=== PATIENT | male | born 1955 | race Caucasian/White ===

== ENCOUNTER 2020-11-19 09:28 | Outpatient (CLI) | payer OTHER, SELFPAY ==
--- NOTE | 2020-11-19 11:30 | NEURO_ITS ---
Impression: # Complains of paresthesia of lower extremities. # Normal motor and sensory nerve conduction study. # No evidence of Tarsal Tunnel Syndrome. # Normal needle/EMG exam. # Clinical correlation recommended. Nerve Conduction Studies Anti Sensory Summary Table Stim Site NR Peak (ms) P-T Amp (?V) Site1 Site2 Delta-P (ms) Dist (cm) Ramón (m/s) Left Sup Fibular Anti Sensory (Ant Lat Mall) 14 cm 3.4 9.0 14 cm Ant Lat Mall 3.4 16.0 47 Right Sup Fibular Anti Sensory (Ant Lat Mall) 14 cm 3.3 10.7 14 cm Ant Lat Mall 3.3 16.0 48 Left Sural Anti Sensory (Lat Mall) Calf 4.0 10.4 Calf Lat Mall 4.0 16.0 40 Right Sural Anti Sensory (Lat Mall) Calf 3.6 12.7 Calf Lat Mall 3.6 16.0 44 Motor Summary Table Stim Site NR Onset (ms) O-P Amp (mV) Site1 Site2 Delta-0 (ms) Dist (cm) Ramón (m/s) Left Lateral Plantar Motor (ADM) Med Mall 5.3 1.3 Right Lateral Plantar Motor (ADM) Med Mall 5.3 0.8 Left Peroneal Motor (Vastus Med) Ankle 4.5 2.6 Popit Ankle 7.8 37.0 47 Popit 12.3 1.8 Right Peroneal Motor (Vastus Med) Ankle 4.0 1.6 Popit Ankle 7.7 36.0 47 Popit 11.7 1.3 Left Tibial Motor (Abd Marcus Brev) Ankle 4.8 1.5 Knee Ankle 8.6 41.0 48 Knee 13.4 0.7 Right Tibial Motor (Abd Marcus Brev) Ankle 4.4 3.7 Knee Ankle 8.8 40.0 45 Knee 13.2 0.8 F Wave Studies NR F-Lat (ms) L-R F-Lat (ms) Left Peroneal (Mrkrs) (EDB) 53.32 0.58 Right Peroneal (Mrkrs) (EDB) 53.91 0.58 Left Tibial (Mrkrs) (Abd Hallucis) 55.00 0.73 Right Tibial (Mrkrs) (Abd Hallucis) 54.28 0.73 EMG Side Muscle Nerve Root Ins Act Fibs Amp Dur Recrt Comment Right AntTibialis Dp Br Fibular L4-5 Nml Nml Nml Nml Nml Right Gastroc Tibial S1-2 Nml Nml Nml Nml Nml Right Fibularis Long Sup Br Fibular L5-S1 Nml Nml Nml Nml Nml Right Flex Dig Long Tibial L5-S2 Nml Nml Nml Nml Nml Right Ext Dig Brev Dp Br Fibular L5, S1 Nml Nml Nml Nml Nml Left AntTibialis Dp Br Fibular L4-5 Nml Nml Nml Nml Nml Left Gastroc Tibial S1-2 Nml Nml Nml Nml Nml Left Fibularis Long Sup Br Fibular L5-S1 Nml Nml Nml Nml Nml Left Flex Dig Long Tibial L5-S2 Nml Nml Nml Nml Nml Left Ext Dig Brev Dp Br Fibular L5, S1 Nml Nml Nml Nml Nml Right QuadratusFem QuadFemoris L4-5, S1 Nml Nml Nml Nml Nml Left QuadratusFem QuadFemoris L4-5, S1 Nml Nml Nml Nml Nml MTDD
== END 2020-11-19 09:29 | disposition home or self-care (01) ==
LOC: ANHNEURO 09:31
PROVIDERS: PCP Internal Medicine; Visit Provider Internal Medicine
DX: R20.2 Paresthesia of skin (principal)
CPT/HCPCS: 95886; 95911

== ENCOUNTER 2022-03-18 06:41 | Outpatient (CLI) | payer MEDICARE, SELFPAY ==
--- NOTE | ~2022-03-18 | MR_ITS ---
EXAMINATION: MR cervical spine wo con DATE: 03/18/2022 07:24 INDICATION: Neck pain. TECHNIQUE: Magnetic resonance imaging (MRI) of the cervical spine was performed without intravenous c ontrast. Sequences included sagittal T2-weighted FSE, sagittal T2-weighted FS FSE, sagittal T1-weight ed FSE, axial MERGE, and axial T2-weighted FSE. COMPARISON: None FINDINGS: There is 5 degrees dextrocurvature of cervicothoracic spine. There is kyphosis of cervical spine. There is 2 mm retrolisthesis of C5 on C6 and 2 mm anterolisthesis of C7 on T1. There is mild c hronic anterior wedging of T1 vertebral body. There is moderately decreased disc height at C4-C5, C5- C6, and C6-C7. The spinal cord signal intensity is normal. The following disc levels are specifically discussed: C2-C3: The disc does not extend beyond the endplate margin. There is moderate right uncovertebral walt nt osteoarthritis. There is severe right and mild left facet joint osteoarthritis. There is moderate right neural foraminal stenosis. There is no central canal stenosis. C3-C4: The disc is bulging. There is severe bilateral uncovertebral joint osteoarthritis. There is mo derate right and severe left facet joint osteoarthritis. There is mild right and moderate left neural foraminal stenosis. There is mild central canal stenosis. C4-C5: The disc is bulging. There is severe bilateral uncovertebral joint osteoarthritis. There is mi ld bilateral facet joint osteoarthritis. There is moderate bilateral neural foraminal stenosis. There is mild central canal stenosis. C5-C6: The disc is bulging. There is severe bilateral uncovertebral joint osteoarthritis. There is mi ld bilateral facet joint osteoarthritis. There is moderate bilateral neural foraminal stenosis. There is mild central canal stenosis. C6-C7: The disc is bulging. There is severe bilateral uncovertebral joint osteoarthritis. There is no facet joint osteoarthritis. There is moderate bilateral neural foraminal stenosis. There is mild liz tral canal stenosis. C7-T1: The disc does not extend beyond the endplate margin. There is no uncovertebral joint osteoarth ritis. There is moderate right and severe left facet joint osteoarthritis. There is mild left neural foraminal stenosis. There is no central canal stenosis. IMPRESSION: 1. Severe cervical spondylosis. Reviewed, dictated and finalized at location A.
== END 2022-03-18 06:42 | disposition home or self-care (01) ==
PROVIDERS: PCP Family Medicine; Visit Provider Orthopaedic Surgery
DX: M47.22 Other spondylosis with radiculopathy, cervical region (principal)
CPT/HCPCS: 72141

== ENCOUNTER 2022-06-27 10:30 | Outpatient (RCR) | payer MEDICARE, SELFPAY ==
--- NOTE | 2022-05-11 11:53 | BUPTOPEVAL1 ---
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 Pt has had MRI imaging showing severe spondylosis of multiple levels. Pt demo's in addition to reduced cervical spine motion, foundational kinematic alignment issues with scoliosis and possible leg length discrepancy with RLE short ~1/2inch. Pt LUE strength testing WNL and LUE ROM WNL. Pt reports LUE greatly improved since initial injury. Thus pt POC will focus most on cervical issues at this time. Pt will greatly benefit from physical therapy in order to improve ROM, alignment, muscle tone and pain to improve overall functional ability and reduce progression of main and deficits. Plan of Care Interventions Electrical Stimulation,Hot Pack/Cold Pack,Manual Therapy,Neuro Re-education,Therapeutic Activities, Therapeutic Exercise,Ultrasound PT Services Indicated Yes Treatment Frequency and 1-2x weekly x 12 visits Duration These treatments will address the objective and functional deficits as defined above. The patient will be advanced safely and appropriately in order for the patient to progress towards his/her prior level of function. Additional exercises will be introduced and as well as a comprehensive home exercise program upon discharge, if needed, ?to ensure carryover of functional gains achieved in the clinic. This treatment plan has been reviewed and agreement upon by the patient.
--- NOTE | 2022-06-27 16:21 | PTOPDC ---
Assessment and note entered by Becki Lay, PT Assessment Status Discharge Diagnosis cervical radiculopathy LUE Onset 11/2021 Subjective Information Pt reports left arm pain is resolved. Reports neck is 90-95% improved Reported Pain Level Pain Score 0: Self Report Assessment PT Clinical Summary Pt reports feeling 90-95% improved overall since starting therapy. States left arm is no longer bothersome, is better able to sleep at night. Only has stiffness in the morning with his neck, resolves as he gets active in the daytime. Reports highest pain level is first in the morning at a 2 /10 and lowest at 0/10. Pt demonstrates and understands his home program as well as how to access therapy in the future if is necessary. Pt is happy with his progress. Thus he is being discharged from therapy plan of care at this time.
== END 2022-06-28 13:06 | disposition home or self-care (01) ==
LOC: ANHHIPT 10:30
PROVIDERS: PCP Family Medicine; Visit Provider Family Medicine
DX: M54.12 Radiculopathy, cervical region (principal); S46.212D Strain of muscle, fascia and tendon of other parts of biceps, left arm, subsequent encounter
CPT/HCPCS: 97014; 97110; 97140; 97162; G0283

== ENCOUNTER 2022-09-09 09:15 | Outpatient (RCR) | payer MEDICARE, SELFPAY ==
--- NOTE | 2022-08-16 09:24 | PTOPEVAL1 ---
Assessment and note entered by Yoly Castañeda DPT Evaluation Information Assessment Status Evaluation Subjective Information Pt reports pain for several weeks that is mainly in his neck, more right sided. Has trouble laying down to sleep and has been trying to sleep in a recliner. Pain radiates up to ear and down to shoulder. Denies radiation past his right shoulder . Highest pain 10/10 recently and lowest 1/10. Sometimes feels tingling but is mostly pain. Pain also increases with looking overhead or turning head side to side like while driving. Some pain after yard work. Pt is retired. Has tried ice and heat which help somewhat, more heat than ice. Previously had been having less pain and less difficulty with activities like driving. Reported Pain Level Pain Score 4: Self Report Assessment PT Clinical Summary The patient is presenting to skilled therapy with a several week history of right cervical pain. He presents with significantly decreased cervical range of motion in all planes, decreased upper extremity strength, and flexibility impairments which are contributing to his pain and difficulty with activities like sleeping and turning his head to drive. He will benefit from therapy to address these impairments and reduce pain and dysfunction . Plan of Care Interventions Electrical Stimulation,Hot Pack/Cold Pack,Manual Therapy,Mechanical Traction,Neuro Re-education, Patient/Caregiver Education,Therapeutic Activities, Therapeutic Exercise,Self-Care/Home Management PT Services Indicated Yes Treatment Frequency and 2 times a week for 4 weeks Duration These treatments will address the objective and functional deficits as defined above. The patient will be advanced safely and appropriately in order for the patient to progress towards his/her prior level of function. Additional exercises will be introduced and as well as a comprehensive home exercise program upon discharge, if needed, ?to ensure carryover of functional gains achieved in the clinic. This treatment plan has been reviewed and agreement upon by the patient.
--- NOTE | 2022-10-24 10:01 | PTOPDC ---
Assessment and note entered by Becki Lay, PT Assessment Status Discharge - Pt Not Present Subjective Information Pt reports pain for several weeks that is mainly (evaluation) in his neck, more right sided. Has trouble laying down to sleep and has been trying to sleep in a recliner. Pain radiates up to ear and down to shoulder. Denies radiation past his right shoulder . Highest pain 10/10 recently and lowest 1/10. Sometimes feels tingling but is mostly pain. Pain also increases with looking overhead or turning head side to side like while driving. Some pain after yard work. Pt is retired. Has tried ice and heat which help somewhat, more heat than ice. Previously had been having less pain and less difficulty with activities like driving. Assessment PT Clinical Summary Pt cancelled his last two appointments stating he would be having surgery and didn't know when he would be able to return to therapy. It has been over 30 days since we have heard from the patient thus we are discharging him from the current plan of care. We would be happy to resume therapy with an updated prescription.
== END 2022-10-24 12:40 | disposition home or self-care (01) ==
LOC: ANHHIPT 09:15
PROVIDERS: PCP Family Medicine; Visit Provider Physician Assistant Medical
DX: M25.512 Pain in left shoulder (principal); M54.2 Cervicalgia
CPT/HCPCS: 97012; 97014; 97110; 97112; 97140; 97162; G0283

== ENCOUNTER 2023-11-02 04:52 | Day surgery (SDC) | payer MEDICARE, SELFPAY ==
[2023-10-23 11:00] VITALS: BMI 32.5
[2023-10-23 11:19] VITALS: BMI 32.5
[2023-11-02 13:59] VITALS: BP 152/74; PULSE 93; RESP 19; TEMP 36.2; O2SAT 99
[2023-11-02] MEDS: LACTATED RINGERS 1,000 ML 150 ML IV CONT (14:08)
--- NOTE | 2023-11-02 14:49 | WPDANESEPPF ---
Anes - Initial Pre Proc Eval Procedure: Operation Date: 11/02/23 15:00 Proposed Procedures p Colonoscopy - Aakash Knox MD Date/Time: 11/02/23 14:49 Surgeon: Aakash Knox MD Pre Op Diagnosis: other fecal abnormalities Patient Data Age: 67 Gender: M Height: 1.75 m Weight: 100 kg Last Vital Signs Temp 36.2 C L 11/02/23 13:59 Pulse 93 11/02/23 13:59 Resp 19 11/02/23 13:59 BP 152/74 H 11/02/23 13:59 Pulse Ox 99 11/02/23 13:59 O2 Del Method Room Air 11/02/23 13:59 Allergies Allergy/AdvReac Type Severity Reaction Status Date / Time No Known Allergies Allergy Mild Verified 11/02/23 13:58 Home Medications Medication Instructions Recorded Confirmed Type budesonide-formoterol HFA 160 2 puff inhalation Q12H #30.6 grams 02/15/23 10/23/23 Rx mcg-4.5 mcg/actuation aerosol inhaler (Symbicort) sildenafil 100 mg tablet (Viagra) 100 mg PO DAILY PRN sexual 02/15/23 10/23/23 Rx activity #30 tabs lorazepam 0.5 mg tablet 0.5 mg PO BID PRN anxiety #60 tabs 07/20/23 11/02/23 Rx atorvastatin 20 mg tablet See Rx Instructions .Route 09/29/23 10/23/23 Rx .COMPLEX #90 tabs amlodipine 5 mg tablet See Rx Instructions .Route 10/23/23 11/02/23 Rx .COMPLEX #90 tabs lisinopril 20 See Rx Instructions .Route 10/30/23 11/02/23 Rx mg-hydrochlorothiazide 12.5 mg .COMPLEX #180 tabs tablet Patient hx anesthesia problems: none Family hx anesthesia problems: none Results Review: All pre-operative results and documents have been reviewed as part of the pre-operative evaluation. [facility] Past Medical History Medical History Anxiety Arthritis Biceps strain Cervical radiculopathy at C6 COPD (chronic obstructive pulmonary disease) Erectile dysfunction Hyperlipidemia Hypertension Otitis externa Otitis media Tendinitis of left rotator cuff Surgical History Surgical History H/O hernia repair H/O rhinoplasty H/O vascular surgery Angioplasty Hx of cataract surgery Family History Family History Father Hypertension Mother Hypertension Depression Cancer Other Arthritis HLD (hyperlipidemia) Social History Social History Smoking packs per day: 1.5 Smoking cigarettes per day: 30.0 Years smoked: 35 Smoking pack-years: 52.50 Smoking status: Former smoker Tobacco type: cigarettes Second hand tobacco smoke exposure: Yes Smoking end date: 05/22/16 Alcohol intake: current Drinks per week: 12 Alcohol use details: BEER Substance use: never Substance use type: does not use Lack of Transportation: No Lack of Food: Never True Current Housing: I Have Housing Concerned About Future Housing: No Difficulty Paying Gas/Electric Bills: No Difficulty Paying for Meds: No Currently Unemployed: No Education: High School Diploma/GED Difficulty w/ Childcare or Family Care: No Living arrangements: alone Occupation/Education: retired Gender identity (if verbalized by the patient): Male Sexual Orientation (if Verbalized by the Patient): Straight or Heterosexual Spiritual care concerns: No Anes - Eval Final PreProcedure Day of Procedure 11/02/23 14:49 Patient weight: obese Heart: regular rate and rhythm Lungs: clear to auscultation Airway: Mallampati scale class II and special considerations poor dentition Neurological: alert and oriented Last oral intake: >/= 8 hours ASA classification: III Emergent: no Anesthetic plan: proceed Anesthesia type and monitoring: general GIVS and standard monitoring Results Review: All pre-operative results and documents have been reviewed as part of the pre-operative evaluation. Informed Consent: The patient's anesthetic plan and its attendant risks and praveena
--- NOTE | 2023-11-02 15:42 | PM.HPGS ---
History of Present Illness History of Present Illness Consent: Risks, benefits, and alternatives have been discussed and questions answered. Patient agrees to proceed with procedure. Chief complaint: other fecal abnormalities Narrative: Juan M Patel is a 67 year old male with + cologuard, last colonoscopy 8 years ago Review of Systems Review of Systems: All systems reviewed & are unremarkable except as noted in HPI and below PMFSH Past Medical History Medical History (Updated 11/02/23 @ 15:46 by Aakash Knox MD) Anxiety Arthritis Biceps strain Cervical radiculopathy at C6 COPD (chronic obstructive pulmonary disease) Erectile dysfunction Hyperlipidemia Hypertension Otitis externa Otitis media Positive colorectal cancer screening using Cologuard test Tendinitis of left rotator cuff Surgical History Surgical History H/O hernia repair H/O rhinoplasty H/O vascular surgery Angioplasty Hx of cataract surgery Family History Family History Father Hypertension Mother Hypertension Depression Cancer Other Arthritis HLD (hyperlipidemia) Social History Social History Smoking packs per day: 1.5 Smoking cigarettes per day: 30.0 Years smoked: 35 Smoking pack-years: 52.50 Smoking status: Former smoker Tobacco type: cigarettes Second hand tobacco smoke exposure: Yes Smoking end date: 05/22/16 Alcohol intake: current Drinks per week: 12 Alcohol use details: BEER Substance use: never Substance use type: does not use Lack of Transportation: No Lack of Food: Never True Current Housing: I Have Housing Concerned About Future Housing: No Difficulty Paying Gas/Electric Bills: No Difficulty Paying for Meds: No Currently Unemployed: No Education: High School Diploma/GED Difficulty w/ Childcare or Family Care: No Living arrangements: alone Occupation/Education: retired Gender identity (if verbalized by the patient): Male Sexual Orientation (if Verbalized by the Patient): Straight or Heterosexual Spiritual care concerns: No Meds Home Medications and Allergies Home Medications Medication Instructions Recorded Confirmed Type budesonide-formoterol HFA 160 2 puff inhalation Q12H #30.6 grams 02/15/23 10/23/23 Rx mcg-4.5 mcg/actuation aerosol inhaler (Symbicort) sildenafil 100 mg tablet (Viagra) 100 mg PO DAILY PRN sexual 02/15/23 10/23/23 Rx activity #30 tabs lorazepam 0.5 mg tablet 0.5 mg PO BID PRN anxiety #60 tabs 07/20/23 11/02/23 Rx atorvastatin 20 mg tablet See Rx Instructions .Route 09/29/23 10/23/23 Rx .COMPLEX #90 tabs amlodipine 5 mg tablet See Rx Instructions .Route 10/23/23 11/02/23 Rx .COMPLEX #90 tabs lisinopril 20 See Rx Instructions .Route 10/30/23 11/02/23 Rx mg-hydrochlorothiazide 12.5 mg .COMPLEX #180 tabs tablet Allergies Allergy/AdvReac Type Severity Reaction Status Date / Time No Known Allergies Allergy Mild Verified 11/02/23 13:58 Vital Signs Vital Signs - 24 hr 11/02/23 13:59 Temperature 97.2 F L Pulse Rate 93 Respiratory Rate 19 Blood Pressure 152/74 H Pulse Oximetry 99 Oxygen Delivery Room Air Exam Const: General: comfortable and no acute distress HENMT: Face/Nose/Sinus: Normal nares present Eyes: General: appearance normal, both eyes and all related structures Neck: Neck: no JVD Resp: Auscultation: clear to auscultation bilaterally Cardio: Rate: regular rate Rhythm: regular rhythm GI: Inspection: non-distended GI Palp: Yes Soft to palpation Skin: General skin exam: normal color Neuro: General: gait normal Speech: normal speech Extrem: General: normal to inspection Psych: Mental Status: mental status grossly normal Assessment and Plan Assessment and plan (1) Positive colorectal can
[2023-11-02 16:08] VITALS: BP 96/46; PULSE 85; RESP 20; O2SAT 97
[2023-11-02 16:18] VITALS: BP 117/68; PULSE 85; RESP 17; O2SAT 100
[2023-11-02 16:28] VITALS: BP 134/72; PULSE 79; RESP 19; O2SAT 100
== END 2023-11-02 16:36 | disposition home or self-care (01) ==
PROVIDERS: PCP Family Medicine; Referring Provider Physician Assistant Medical; Visit Provider Internal Medicine Gastroenterology
PROC: 0DJD8ZZ Inspection of Lower Intestinal Tract, Via Natural or Artificial Opening Endoscopic (ICD-10-PCS; CPT 45378; principal; 2023-11-02 15:00)
DX: D12.2 Benign neoplasm of ascending colon (principal); K57.30 Diverticulosis of large intestine without perforation or abscess without bleeding; K64.8 Other hemorrhoids; J44.9 Chronic obstructive pulmonary disease, unspecified; I10 Essential (primary) hypertension; E78.5 Hyperlipidemia, unspecified; F41.9 Anxiety disorder, unspecified; Z79.51 Long term (current) use of inhaled steroids; Z87.891 Personal history of nicotine dependence; E66.9 Obesity, unspecified; Z68.32 Body mass index [BMI] 32.0-32.9, adult
CPT/HCPCS: 45385; 88305; J2001; J2704; J7120

== ENCOUNTER 2024-02-09 07:28 | Outpatient (CLI) | payer MEDICARE, SELFPAY ==
--- NOTE | ~2024-02-09 | MR_ITS ---
EXAMINATION: MR renal wo/w con DATE: 02/09/2024 08:46 INDICATION: Other specified disorders of kidney and ureter. TECHNIQUE: Magnetic resonance imaging (MRI) of the abdomen was performed without and with 20 mL Multi hiren intravenous contrast. Sequences included coronal T2-weighted SS-FSE, coronal and axial FS 2D-F IESTA, axial STIR FSE, axial T2-weighted SS-FSE, axial T2-weighted FS SS-FSE, axial diffusion-weighte d SE, axial dual-echo T1-weighted FSPGR, and axial and coronal T1-weighted LAVA. Postcontrast axial T 1-weighted LAVA images were obtained in a time course. Postcontrast coronal T1-weighted LAVA images w ere obtained. COMPARISON: None. FINDINGS: Heart size is normal. No pericardial or pleural effusion. Liver, gallbladder, spleen, pancreas, left kidney and bilateral adrenal glands are normal. 1.5 similar exophytic proteinaceous/hemorrhagic cyst at the lower pole of the left kidney which demonstrates high T1 and very low T2 signal without eviden t enhancement on postcontrast imaging. Bowels are unremarkable with normal retrocecal appendix. No pa thologically enlarged abdominal or upper pelvic lymphadenopathy. Mild lumbar dextrocurvature with mod erate to severe spondylosis. Small T1 hyperintense fat saturating hemangioma at T12. No pathologic ma rrow replacing process. IMPRESSION: 1. 1.5 cm nonenhancing proteinaceous/hemorrhagic cyst at the lower pole of the right kidney. Reviewed, dictated and finalized at location B.
== END 2024-02-09 07:29 | disposition home or self-care (01) ==
LOC: MICIMG 07:28
PROVIDERS: PCP Physician Assistant Medical; Visit Provider Physician Assistant Medical
DX: N28.89 Other specified disorders of kidney and ureter (principal); N28.1 Cyst of kidney, acquired
CPT/HCPCS: 74183; A9577